=== PATIENT | female | born 1990 | race Caucasian/White ===

== ENCOUNTER 2019-05-28 16:17 | Inpatient (IN) | payer MEDICAID ==
[~2019-05-28] VITALS: Ht 162.6 cm; Wt 98.0 kg
[2019-05-28 16:33] VITALS: BP 99/59
--- NOTE | 2019-05-28 17:15 | NUR ---
PT TAKEN TO BED 7.
--- NOTE | 2019-05-28 17:24 | NUR ---
EPIGASTRIC PAIN X 1100 TODAY. DENIES N/V/D; SKIN IS PINK/WARM/DRY; AAOX4 WITH EVEN AND STEADY GAIT; LUNGS CLEAR BL; HR EVEN AND REGULAR; PT DENIES ANY FEVER, CP, SOB, OR COUGH AT THIS TIME; PATIENT STATES PAIN OF 8/10 AT THIS TIME; VSS; PATIENT POSITIONED FOR COMFORT; HOB ELEVATED; BEDRAILS UP X2; BED DOWN. ER MD MADE AWARE OF PT STATUS. FAMILY AT BEDSIDE.
[2019-05-28 17:40] LABS: BASOPHILS % (AUTO) 0.2 % (0.0-2.0); EOSINOPHILS % (AUTO) 0.1 % (0.0-4.0); HEMATOCRIT 41.2 % (36-48); HEMOGLOBIN 13.3 g/dL (12.0-16.0); LYMPHOCYTES # (AUTO) 1.1 K/uL (2.5-16.5); LYMPHOCYTES % (AUTO) 8.3 % (20.5-51.1); MEAN CORPUSCULAR HEMOGLOBIN 29 pg (27-31); MEAN CORPUSCULAR HGB CONC 32 g/dL (33-37); MEAN CORPUSCULAR VOLUME 88.3 fL (80-94); MONOCYTES # (AUTO) 0.5 K/uL (0.8-1.0); MONOCYTES % (AUTO) 4.1 % (1.7-9.3); NEUTROPHILS # (AUTO) 11.1 K/uL (1.8-7.7); NEUTROPHILS % (AUTO) 87.3 % (42.2-75.2); PLATELET COUNT (AUTO) 308 K/uL (140-450); RED BLOOD CELL COUNT(AUTO) 4.66 MIL/uL (4.20-5.40); RED CELL DISTRIBUTION WIDTH 13.2 % (11.6-13.7); WHITE BLOOD COUNT (AUTO) 12.8 K/uL (4.8-10.8)
[2019-05-28] MEDS ORDERED: ALUMINUM HYD/MAG/SIMETHICONE 30 ML UDC PO ONE (17:40)
[2019-05-28] MEDS ORDERED: LIDOCAINE VISCOUS 2% 20 ML UDC PO ONE (17:40)
--- NOTE | 2019-05-28 17:53 | NUR ---
PT'S FAMILY HAS CONCER FOR BREAST FEEDING, NOTIFIED MD WALT PEREZGE MEDICATION.
[2019-05-28 18:10] LABS: APPEARANCE,URINE SLIGHTLY CLOUDY (CLEAR); COLOR,URINE AMBER (YELLOW)
[2019-05-28 18:11] LABS: BILIRUBIN,URINE 1+ (NEGATIVE); BLOOD, URINE NEGATIVE (NEGATIVE); UGLUCOSE NEGATIVE (NEGATIVE)
[2019-05-28 18:12] LABS: ANION GAP 13.5 (8-16); CARBON DIOXIDE 27.5 mmol/L (21-32); CREATININE 0.8 mg/dL (0.6-1.3)
[2019-05-28 18:12] LABS: LEUKOCYTE ESTERASE ,URINE TRACE (NEGATIVE); NITRITE, URINE NEGATIVE (NEGATIVE)
--- NOTE | 2019-05-28 18:12 | NUR ---
Ultrasound at bedside.
[2019-05-28 18:36] LABS: RBC,URINE NONE SEEN /HPF (0-5)
[2019-05-28 18:52] LABS: TOTAL BILIRUBIN 1.1 mg/dL (0.0-1.0)
--- NOTE | 2019-05-28 19:14 | NUR ---
ENDORSED TO PM SHIFT RN.
[2019-05-28] MEDS ORDERED: ACETAMINOPHEN 325 MG TAB PO PRN (19:30)
[2019-05-28] MEDS ORDERED: PIPERACILLIN/TAZOBACTAM 3.375 GM in DEXTROSE 5% 50 ML IV ONE (19:35)
[2019-05-28] MEDS: NACL 0.9% 1,000 ML IV SCH (19:51)
[2019-05-28 20:10] VITALS: BP 116/67
--- NOTE | 2019-05-28 20:10 | NUR ---
Patient will be admitted to care of [facility]. Admited to [facility]. Will go to room 112 A. Belongings list completed. Report to ISA BENJAMIN.
--- NOTE | 2019-05-28 20:10 | NUR ---
RECEIVED BEDSIDE REPORT FROM ED RN EROS, FOR PT'S CONTINUITY OF CARE. PT IS AAOX4, AMBULATORY TO RESTROOM, MOTHER IS AT BEDSIDE, IS ON ROOM AIR, HAS RIGHT AC 20G, C/O PAIN 6/10. EXPLAINED TO PT AND MOTHER THE WELL SERVICING RIG OPERATOR ROUTINE, THEY VERBALIZED UNDERSTANDING. BED IS ON LOW POSITION, SIDE RAILS ARE UP, AND CALL LIGHT IS WITHIN REACH. WILL MONITOR PT THROUGHOUT SHIFT.
--- NOTE | 2019-05-28 20:10 | NUR ---
Pamela george in EDM - 05/28/19 at 2020 by YOLANDA A Patient will be admitted to care of [facility]. Admited to [facility]. Will go to room 112 A. [facility] list completed. Report to ISA BENJAMIN.
[2019-05-28] MEDS: HYDROcodone/APAP 7.5/325 MG 1 TAB PO PRN (21:07)
--- NOTE | 2019-05-28 21:07 | NUR ---
ADMISSION VS CHECKED AND CHARTED. ADMINISTERED PO PRN PAIN MEDICATION ORDERED. PT TOLERATED IT WELL. WILL CONTINUE TO MONITOR PT.
--- NOTE | 2019-05-28 21:50 | NUR ---
PT TAKEN TO CT DEPT FOR CT OF ABDOMEN.
[2019-05-28 21:54] LABS: FREE T4 (FREE THYROXINE) 0.92 ng/dL (0.76-1.46); MAGNESIUM 2.9 mg/dL (1.8-2.4); PHOSPHORUS 3.7 mg/dL (2.5-4.9); THYROID STIMULATING HORMONE 0.95 uIU/mL (0.34-3.74)
[2019-05-28 22:02] LABS: PROTHROMBIN TIME 9.4 secs (10.8-13.4)
[2019-05-28 22:12] LABS: BARBITURATE, URINE NEGATIVE ng/ml (NEG <=200); BENZODIAZEPINE, URINE NEGATIVE ng/mL (NEG <=200); CANNABINOID, URINE NEGATIVE ng/mL (NEG <=50); COCAINE, URINE NEGATIVE ng/mL (NEG <=300); OPIATE, URINE NEGATIVE ng/mL (NEG <=2000); PHENCYCLIDINE SCREEN,URINE NEGATIVE ng/mL (NEG <=25)
[2019-05-28] MEDS ORDERED: PIPERACILLIN/TAZOBACTAM 3.375 GM VIAL IV ONE (22:29)
[2019-05-28] MEDS: PIPERACILLIN/TAZOBACTAM 3.375 GM in DEXTROSE 5% 50 ML IV SCH (22:30)
[2019-05-28] MEDS: MORPHINE SULFATE 2 MG/ML SYR IVP PRN (22:47)
--- NOTE | 2019-05-28 22:47 | NUR ---
ADMINISTERED SCHEDULED IV ABX ORDERED. PT C/O UNRELIEVED PAIN, ADMINISTERED PRN IV PUSH PAIN MEDICATION ORDERED. PT TOLERATED IT WELL. WILL CONTINUE TO MONITOR PT.
[2019-05-29] VITALS: BP 112/58
--- NOTE | 2019-05-29 | NUR ---
VS CHECKED AND CHARTED. PT DENIES ANY PAIN AT THIS TIME. PT POST (5 WEEKS AGO), IS BREAST FEEDING, PUMPING AT BEDSIDE.
--- NOTE | 2019-05-29 02:30 | NUR ---
MADE ROUNDS. PT LYING DOWN ASLEEP WITH NO SIGNS OF DISTRESS. WILL CONTINUE TO MONITOR PT.
--- NOTE | 2019-05-29 04:00 | NUR ---
PT CALLED AND FOUND PT CRYING, STATES SHE DOES NOT WANT TO BE IN THE HOSPITAL FOR TOO LONG, "WANTS TO BE WITH HER BABY". REITERATED TO PT WHAT DR. MIX EXPLAINED TO HER EARLIER. TOLD PT WILL INFORM MD. PT VERBALIZED UNDERSTANDING. INFORMED MD ANA WILL DISCUSS IN AM.
[2019-05-29] MEDS ORDERED: PIPERACILLIN/TAZOBACTAM 3.375 GM VIAL IV ONE ×2 (04:30→17:44)
--- NOTE | 2019-05-29 04:45 | NUR ---
ADMINISTERED IV ABX ORDERED. PT AWAKE, DENIES ANY PAIN AT THIS TIME, INFORMED PT THAT MD AWARE OF HER CONCERNS. WILL CONTINUE TO MONITOR PT.
[2019-05-29] MEDS: PIPERACILLIN/TAZOBACTAM 3.375 GM in DEXTROSE 5% 50 ML IV SCH ×3 (04:47→21:57)
--- NOTE | 2019-05-29 06:30 | NUR ---
PT AWAKE, PUMPING FOR BREASTMILK, REQUESTED BREAST MILK TO BE STORED IN THE FREEZER. PT DENIES ANY PAIN AT THIS TIME. WILL ENDORSE TO AM SHIFT RN FOR PT'S CONTINUITY OF CARE.
--- NOTE | 2019-05-29 07:15 | NUR ---
RECEIVED REPORT FROM BALLISTIC TECHNICIAN NURSE. PATIENT LYING DOWN IN BED SLEEPING, AROUSABLE BY VOICE. NO DISTRESS NOTED. DENIES ANY PAIN. AAOX4, CALM, COOPERATIVE, SKIN COLOR APPROPRIATE TO ETHNICITY, WARM TO TOUCH. SKIN INTACT. IV SITE INTACT, PATENT, AND INFUSING IVF PER MD ORDERS. RESPIRATIONS EVEN, UNLABORED, ON ROOM AIR. REVIEWED PLAN OF CARE WITH PATIENT. PATIENT VERBALIZED UNDERSTANDING. SAFETY MEASURES IN PLACE, CALL LIGHT WITHIN REACH. WILL CONTINUE TO MONITOR.
[2019-05-29 07:24] LABS: BASOPHILS % (AUTO) 0.4 % (0.0-2.0); EOSINOPHILS % (AUTO) 0.5 % (0.0-4.0); HEMATOCRIT 38.3 % (36-48); HEMOGLOBIN 12.2 g/dL (12.0-16.0); LYMPHOCYTES # (AUTO) 1.6 K/uL (2.5-16.5); LYMPHOCYTES % (AUTO) 24.6 % (20.5-51.1); MEAN CORPUSCULAR HEMOGLOBIN 28 pg (27-31); MEAN CORPUSCULAR HGB CONC 32 g/dL (33-37); MEAN CORPUSCULAR VOLUME 88.4 fL (80-94); MONOCYTES # (AUTO) 0.4 K/uL (0.8-1.0); MONOCYTES % (AUTO) 6.6 % (1.7-9.3); NEUTROPHILS # (AUTO) 4.5 K/uL (1.8-7.7); NEUTROPHILS % (AUTO) 67.9 % (42.2-75.2); PLATELET COUNT (AUTO) 268 K/uL (140-450); RED BLOOD CELL COUNT(AUTO) 4.33 MIL/uL (4.20-5.40); RED CELL DISTRIBUTION WIDTH 13.3 % (11.6-13.7); WHITE BLOOD COUNT (AUTO) 6.6 K/uL (4.8-10.8)
[2019-05-29 08:00] VITALS: BP 108/59
[2019-05-29 08:23] LABS: ANION GAP 14.6 (8-16); CARBON DIOXIDE 25.6 mmol/L (21-32); POTASSIUM 3.2 mmol/L (3.5-5.1)
[2019-05-29 08:24] LABS: CREATININE 0.8 mg/dL (0.6-1.3)
[2019-05-29 08:48] LABS: CHOL/HDL RATIO 3.6 (1-4.5)
[2019-05-29] MEDS: LACTOBACILLUS RHAMNOSUS GG 1 EACH CAP PO SCH (09:30)
--- NOTE | 2019-05-29 09:32 | NUR ---
PATIENT LYING DOWN IN BED COMFORTABLY. MOTHER AT BEDSIDE. NO DISTRESS NOTED. DENIES ANY PAIN. SCHEDULED MEDICATIONS DUE GIVEN. WILL CONTINUE TO MONITOR.
--- NOTE | 2019-05-29 11:00 | NUR ---
PATIENT SITTING DOWN IN BED BREASTPUMPING. NO DISTRESS NOTED. DENIES ANY PAIN. WILL CONTINUE TO MONITOR.
[2019-05-29] MEDS ORDERED: POTASSIUM CHLORIDE 10 MEQ TABER PO SCH (12:00)
--- NOTE | 2019-05-29 12:30 | NUR ---
PATIENT SITTING DOWN IN BED TALKING WITH MOTHER AT BEDSIDE. CONDITION UNCHANGED. WILL CONTINUE TO MONITOR.
[2019-05-29] MEDS: NACL 0.9% 1,000 ML IV SCH (12:56)
[2019-05-29 14:49] LABS: ALBUMIN 3.6 g/dL (3.4-5.0); BILIRUBIN,DIRECT 1.1 mg/dL (0.0-0.3); TOTAL BILIRUBIN 2.7 mg/dL (0.0-1.0)
--- NOTE | 2019-05-29 14:54 | NUR ---
DR. MIX AT BEDSIDE REVIEWING PLAN OF CARE WITH PATIENT. FAMILY AT BEDSIDE ALONG WITH PATIENT. WILL CONTINUE TO MONITOR.
--- NOTE | 2019-05-29 15:00 | NUR ---
DR MIX TALKED WITH PATIENT AND FAMILY AT BEDSIDE REGARDING SURGERY AND OPTIONS FOR PATIENT. DR. MIX RECOMMENDS MRI INSTEAD OF SURGERY AT THIS TIME DUE TO RISKS AND LACK OF PROPER EQUIPMENT TO PERFORM THE SURGERY AT [facility]. PATIENT/FAMILY VERBALIZED UNDERSTANDING, BUT UNSURE AT THIS TIME PATIENT FEELS LIKE THEY ARE WASTING THEIR TIME WAITING HERE. PATIENT WISHES TO BE WITH HER BABY AND GO HOME. WILL CONTINUE TO MONITOR.
[2019-05-29 16:00] VITALS: BP 110/60
[2019-05-29] MEDS ORDERED: BUPIVACAINE-MPF/EPI 0.5% 30 ML VIAL INJ ONE (16:26)
[2019-05-29] MEDS ORDERED: MIDAZOLAM 2 MG/2 ML VIAL ONE (16:39)
[2019-05-29] MEDS ORDERED: fentaNYL 0.05 MG/ML VIAL ONE (16:39)
--- NOTE | 2019-05-29 17:08 | NUR ---
DR. RICHARD AT BEDSIDE REVIEWING PLAN OF CARE WITH PATIENT/FAMILY AT BEDSIDE. CONSENT OBTAINED FOR LAP CHOLECYSTECTOMY. DR. RICHARD ANSWERED ALL OF PATIENT/FAMILY QUESTIONS REGARDING SURGERY. WILL CONTINUE TO MONITOR.
[2019-05-29] MEDS ORDERED: ROCURONIUM 50 MG/5 ML VIAL IV ONE (17:36)
[2019-05-29] MEDS ORDERED: SUCCINYLCHOLINE CHLORIDE 200 MG/10 ML VIAL IV ONE (17:36)
[2019-05-29] MEDS ORDERED: DEXAMETHASONE 4 MG/ML VIAL IVP ONE (17:36)
[2019-05-29] MEDS ORDERED: DESFLURANE 240 ML BTL INH ONE (17:36)
[2019-05-29] MEDS ORDERED: LIDOCAINE 2% 100 MG/5 ML SYR IVP ONE (17:36)
[2019-05-29] MEDS ORDERED: PROPOFOL 200 MG/20 ML VIAL IV ONE (17:36)
[2019-05-29] MEDS ORDERED: KETOROLAC 30 MG/ML VIAL IVP ONE (17:36)
[2019-05-29] MEDS ORDERED: ePHEDrine 50 MG/ML VIAL IV ONE (17:36)
--- NOTE | 2019-05-29 18:00 | NUR ---
OR NURSES ON UNIT TO TAKE PATIENT TO SURGERY. WILL CONTINUE TO MONITOR WHEN PATIENT RETURNS.
[2019-05-29] MEDS ORDERED: ONDANSETRON 4 MG/2 ML VIAL IVP PRN (18:10)
[2019-05-29] MEDS ORDERED: HYDROmorphone 1 MG/ML AMP IVP PRN (18:10)
[2019-05-29] MEDS ORDERED: THROMBIN KIT 20 MU VIAL TP ONE (19:00)
--- NOTE | 2019-05-29 19:15 | NUR ---
RECEIVED REPORT FROM AM SHIFT RN VIKY FOR PT'S CONTINUITY OF CARE. PT IS IN SX FOR HEIDI MARQUEZ. WILL MONITOR PT THROUGHOUT SHIFT UPON RETURN TO THE UNIT.
--- NOTE | 2019-05-29 19:15 | NUR ---
GAVE REPORT TO ORTHOTIC PRACTITIONER NURSE FOR CONTINUITY OF CARE. PATIENT IN STABLE CONDITION.
[2019-05-29] MEDS ORDERED: HYDROmorphone PFS 2 MG/ML SYR ONE (19:50)
--- NOTE | 2019-05-29 20:30 | NUR ---
PATIENT BACK FROM SX. S/P HEIDI MARQUEZ, REPORT GIVEN AT BEDSIDE BY RN PLASTICS. PT AAOX4, ON ROOM AIR, HAS RIGHT AC 20G, REPORTS FEELING OF SORENESS AT THE SITE. 4 INCISIONS, WITH DERMABOND AND 2 BAND AIDS ON 2 INCISIONS. POST OP VS IMPLEMENTED. SAFETY MEASURES IN PLACE. CALL LIGHT IS WITHIN REACH. FAMILY MEMBERS AT BEDSIDE. WILL CONTINUE TO MONITOR PT.
--- NOTE | 2019-05-29 20:45 | NUR ---
PT C/O NAUSEA AND VOMITING, SORENESS AT THE SITE. PT TEACHING GIVEN RE: POST OP SX. PT AND FAM MEMBERS VERBALIZED UNDERSTANDING.
[2019-05-29] MEDS: ONDANSETRON 4 MG/2 ML VIAL IM/IVP PRN (21:56)
[2019-05-29] MEDS: MORPHINE SULFATE 2 MG/ML SYR IVP PRN (21:57)
--- NOTE | 2019-05-29 21:57 | NUR ---
PT C/O PAIN AND NAUSEA. ADMINISTERED PRN IV PUSH ANTI NAUSEA AND PAIN MEDICATIONS ORDERED. ADMINISTERED SCHEDULED IV ABX ORDERED, MD AWARE. PT TOLERATED THEM WELL. WILL CONTINUE TO MONITOR PT.
[2019-05-30] VITALS: BP 115/54
--- NOTE | 2019-05-30 00:20 | NUR ---
VS CHECKED AND CHARTED. PT DENIES PAIN, JUST FEELS SORE AT THE SX SITE. ASSISTED PT TO BREAST PUMP, PT REQUESTED FOR CHICKEN BROTH AND WARM WATER. PT TOLERATED ACTIVITY AND FLUIDS WELL. WILL CONTINUE TO MONITOR PT.
--- NOTE | 2019-05-30 02:40 | NUR ---
ASSISTED PT WITH BREAST PUMP, PT DENIES PAIN AT THIS TIME. ENCOURAGED PT TO INCREASE FLUID INTAKE, TO HELP WITH BREAST MILK PRODUCTION. PT VERBALIZED UNDERSTANDING. WILL CONTINUE TO MONITOR PT.
[2019-05-30] MEDS: PIPERACILLIN/TAZOBACTAM 3.375 GM in DEXTROSE 5% 50 ML IV SCH (04:27)
--- NOTE | 2019-05-30 04:30 | NUR ---
ADMINISTERED SCHEDULED IV ABX ORDERED. PT STATES SX SITE FEELS SORE, AND NO PAIN AT THIS TIME. WILL CONTINUE TO MONITOR PT.
[2019-05-30] MEDS: NACL 0.9% 1,000 ML IV SCH ×2 (04:50→21:30)
--- NOTE | 2019-05-30 05:20 | NUR ---
ASSISTED PT TO BREAST PUMP. REQUESTED PAIN MEDICATION AFTER USING BREAST PUMP.
[2019-05-30] MEDS: MORPHINE SULFATE 2 MG/ML SYR IVP PRN ×3 (06:00→21:52)
--- NOTE | 2019-05-30 06:00 | NUR ---
PT C/O ABD PAIN 03/20. ADMINISTERED PRN IV PUSH PAIN MEDICATION ORDERED. PT TOLERATED IT WELL. PT IN COMFORTABLE POSITION, AND IN STABLE CONDITION. WILL ENDORSE TO AM SHIFT RN FOR PT'S CONTINUITY OF CARE.
[2019-05-30 06:40] LABS: BASOPHILS % (AUTO) 0.2 % (0.0-2.0); EOSINOPHILS % (AUTO) 0.1 % (0.0-4.0); HEMATOCRIT 35.1 % (36-48); HEMOGLOBIN 11.5 g/dL (12.0-16.0); LYMPHOCYTES # (AUTO) 1.2 K/uL (2.5-16.5); LYMPHOCYTES % (AUTO) 17.4 % (20.5-51.1); MEAN CORPUSCULAR HEMOGLOBIN 29 pg (27-31); MEAN CORPUSCULAR HGB CONC 33 g/dL (33-37); MEAN CORPUSCULAR VOLUME 87.8 fL (80-94); MONOCYTES # (AUTO) 0.5 K/uL (0.8-1.0); MONOCYTES % (AUTO) 7.2 % (1.7-9.3); NEUTROPHILS # (AUTO) 5.3 K/uL (1.8-7.7); NEUTROPHILS % (AUTO) 75.1 % (42.2-75.2); PLATELET COUNT (AUTO) 232 K/uL (140-450); RED CELL DISTRIBUTION WIDTH 13.5 % (11.6-13.7); WHITE BLOOD COUNT (AUTO) 7.1 K/uL (4.8-10.8)
[2019-05-30 07:01] LABS: MAGNESIUM 1.7 mg/dL (1.8-2.4); PHOSPHORUS 4.4 mg/dL (2.5-4.9)
--- NOTE | 2019-05-30 07:05 | NUR ---
RECEIVED REPORT FROM CONVEYOR SYSTEM OPERATOR NURSE. PT IS AROUSABLE TO NAME, ORIENTED X4, NO C/O PAIN. IV ON RT AC 20 GA RUNNING IVF PER ORDER. RESPIRATIONS EVEN AND UNLABORED ON RA. ABD SOFT, ACTIVE BS. NOTED SURGICAL INCISIONS TO ABD, DRESSING CLEAN, DRY AND INTACT. SAFETY MEASURES IN PLACE, CALL LIGHT WITHIN REACH. REVIEWED POC WITH PT, PT VERBALIZES UNDERSTANDING.
[2019-05-30 07:11] LABS: ALBUMIN 3.3 g/dL (3.4-5.0); ANION GAP 15.1 (8-16); CARBON DIOXIDE 25.8 mmol/L (21-32); CREATININE 0.7 mg/dL (0.6-1.3); POTASSIUM 3.9 mmol/L (3.5-5.1); TOTAL BILIRUBIN 2.3 mg/dL (0.0-1.0)
[2019-05-30 08:00] VITALS: BP 118/64
[2019-05-30] MEDS: LACTOBACILLUS RHAMNOSUS GG 1 EACH CAP PO SCH (08:38)
--- NOTE | 2019-05-30 08:38 | NUR ---
ADMINISTERED LACTOBACILLUS PER ORDER, PT AWARE OF INDICATIONS AND POTENTIAL SIDE EFFECTS. ASSISTED PT TO AMBULATE TO THE RESTROOM, WALKING SLOWLY WITH STEADY GAIT.
--- NOTE | 2019-05-30 08:45 | NUR ---
PT GIVEN BATHING SUPPLIES PER REQUEST. ASSISTED PT TO THE BATHROOM TO SHOWER. WILL CONTINUE TO MONITOR.
--- NOTE | 2019-05-30 09:09 | NUR ---
ADMINISTERED MORPHINE PER ORDER FOR LEVEL 7/10 PAIN TO ABDOMEN. WILL REASSESS WITHIN 1 HOUR.
--- NOTE | 2019-05-30 11:30 | NUR ---
NOTIFIED PT THAT SHE CANNOT HAVE ANYTHING TO EAT AFTER MIDNIGHT D/T PROCEDURE TO BE DONE TOMORROW. PT IS AWARE THAT SHE MAY EAT LUNCH AND DINNER.
[2019-05-30] MEDS ORDERED: HYDROmorphone 1 MG/ML AMP IVP PRN (12:20)
[2019-05-30] MEDS ORDERED: MAGNESIUM OXIDE 400 MG TAB PO SCH (12:30)
[2019-05-30] MEDS: LEVOFLOXACIN 500 MG/D5W PREMIX 100 ML IV SCH (13:39)
--- NOTE | 2019-05-30 13:39 | NUR ---
ADMINISTERED IV LEVAQUIN PER ORDER, PT IS AWARE OF INDICATIONS AND POTENTIAL SIDE EFFECTS. PT HAS NO SIGNS OF DISTRESS AT THIS TIME.
[2019-05-30] MEDS: ONDANSETRON 4 MG/2 ML VIAL IM/IVP PRN (15:53)
--- NOTE | 2019-05-30 15:53 | NUR ---
ADMINISTERED ZOFRAN PER ORDER D/T PT C/O FEELINGS OF NAUSEA, WILL REASSESS WITHIN 1 HOUR.
[2019-05-30 16:00] VITALS: BP 102/61
--- NOTE | 2019-05-30 17:10 | NUR ---
WOUND ASSESSMENT DONE, SKIN CARE PROVIDED. PT REQUESTS TO SEE A NURSE. NOTIFIED CHARGE NURSE.
--- NOTE | 2019-05-30 19:10 | NUR ---
ENDORSED PT TO SEARCH SPECIALIST NURSE. PT HAS NO SIGNS OF DISTRESS AT THIS TIME.
--- NOTE | 2019-05-30 19:11 | NUR ---
RECEIVED REPORT FROM AM SHIFT NURSE. PT Mary Hernandez, ORIENTED X4, WITH COMPLAINTS OF PAIN 10/18, GIVEN PAIN MEDS EARLIER. IV ON LT AC RUNNING IVF PER ORDER.S/P HEIDI ALMA LAST 05/29, FOR ERCP TOMORROW. NPO POST MIDNIGHT, AWARE RESPIRATIONS EVEN AND UNLABORED ON RA. ABD SOFT, ACTIVE BS. NOTED SURGICAL INCISIONS TO ABD, DRESSING CLEAN, DRY AND INTACT. SAFETY MEASURES IN PLACE, CALL LIGHT WITHIN REACH. REVIEWED POC WITH PT, PT VERBALIZED UNDERSTANDING.WILL CONTINUE TO MONITOR. Addendum: 05/30/19 at 1954 by Nathalia Hernandez RN PLS DELETE COMPLAINTS OF PAIN AND GIVEN PAIN MEDS EARLIER ---TO--- NO COMPLAINTS OF PAIN NOW, W/ FAMILY AT BEDSIDE.
[2019-05-30 20:00] VITALS: BP 121/71
--- NOTE | 2019-05-30 21:50 | NUR ---
PT C/O OF 10/10 PAIN ON THE INCISION WILL ADMINSITER PAIN MEDS ACCDG TO SEVERITY OF PAIN . EXPLAINED THE RISKS AND BENFEFITS OF MORPHINE PT VERBALIZED UNDERSTANDING
--- NOTE | 2019-05-30 22:00 | NUR ---
PT AMBULATING, GOING TO THE BATHROOM, ABLE TO TOLERATE WITH STEADY GAIT
--- NOTE | 2019-05-31 00:30 | NUR ---
TOOK A PICTURE ON THE SURGICAL INCISIONS S/P LAP ALMA- 4 INCISIONS.
[2019-05-31] MEDS: MORPHINE SULFATE 2 MG/ML SYR IVP PRN ×2 (01:44→09:04)
--- NOTE | 2019-05-31 01:45 | NUR ---
PLS DELETE PAIN ASSESSMENT 0145 AND CHANGED TO 0144
--- NOTE | 2019-05-31 04:00 | NUR ---
PT CRYING POST SIGNS OF DEPRESSION NOTED, WILL INFORM AM NURSE FOR HULL OUTFIT SUPERVISOR
[2019-05-31 06:57] LABS: BASOPHILS % (AUTO) 0.4 % (0.0-2.0); EOSINOPHILS % (AUTO) 0.6 % (0.0-4.0); HEMOGLOBIN 11.9 g/dL (12.0-16.0); LYMPHOCYTES # (AUTO) 1.6 K/uL (2.5-16.5); LYMPHOCYTES % (AUTO) 28.7 % (20.5-51.1); MEAN CORPUSCULAR HEMOGLOBIN 29 pg (27-31); MEAN CORPUSCULAR HGB CONC 32 g/dL (33-37); MEAN CORPUSCULAR VOLUME 88.8 fL (80-94); MONOCYTES # (AUTO) 0.4 K/uL (0.8-1.0); MONOCYTES % (AUTO) 7.8 % (1.7-9.3); NEUTROPHILS # (AUTO) 3.5 K/uL (1.8-7.7); NEUTROPHILS % (AUTO) 62.5 % (42.2-75.2); PLATELET COUNT (AUTO) 242 K/uL (140-450); RED BLOOD CELL COUNT(AUTO) 4.17 MIL/uL (4.20-5.40); RED CELL DISTRIBUTION WIDTH 13.3 % (11.6-13.7); WHITE BLOOD COUNT (AUTO) 5.5 K/uL (4.8-10.8)
[2019-05-31 07:18] LABS: ANION GAP 14.6 (8-16); CARBON DIOXIDE 26.4 mmol/L (21-32); CREATININE 0.7 mg/dL (0.6-1.3)
--- NOTE | 2019-05-31 07:19 | NUR ---
PT IN STABLE CONDITION, ENDORSED TO NEXT SHIFT, FOR POSSIBLE ERCP TODAY
--- NOTE | 2019-05-31 07:20 | NUR ---
RECEIVED REPORT FROM INTERMEDIATE PROJECT MANAGER NURSE. PT IS AOX4. VSS, NO C/O PAIN. RESPIRATIONS EVEN AND UNLABORED ON RA. IV ON LT AC 20 GA RUNNING IVF PER ORDER. ABD SOFT, ACTIVE BS. ABD INCISIONS INTACT, SKIN WARM TO TOUCH. SAFETY MEASURES IN PLACE, CALL LIGHT WITHIN REACH. REVIEWED POC WITH PT, PT VERBALIZED UNDERSTANDING.
[2019-05-31 07:21] LABS: MAGNESIUM 1.8 mg/dL (1.8-2.4); PHOSPHORUS 3.3 mg/dL (2.5-4.9)
[2019-05-31 07:26] LABS: ALBUMIN 3.3 g/dL (3.4-5.0); BILIRUBIN,DIRECT 2.6 mg/dL (0.0-0.3); TOTAL BILIRUBIN 4.4 mg/dL (0.0-1.0)
--- NOTE | 2019-05-31 07:50 | NUR ---
NOTIFIED CHARGE NURSE REGARDING PT'S REQUEST TO SEE CORE FEEDER. WILL CONTINUE TO FOLLOW-UP.
[2019-05-31 08:00] VITALS: BP 114/75
--- NOTE | 2019-05-31 08:38 | NUR ---
PT REFUSED LACTOBACILLUS AT THIS TIME, PT HAS NOTHING BY MOUTH D/T PROCEDURE TODAY. WILL NOTIFY PHYSICIAN.
[2019-05-31] MEDS: LACTOBACILLUS RHAMNOSUS GG 1 EACH CAP PO SCH (09:00)
--- NOTE | 2019-05-31 10:45 | NUR ---
NOTIFIED PT THAT PROCEDURE WILL BE AROUND 1115, PT VERBALIZES UNDERSTANDING.
--- NOTE | 2019-05-31 11:10 | NUR ---
PT TAKEN TO OR FOR PROCEDURE, PT HAS NO SIGNS OF DISTRESS AT THIS TIME.
[2019-05-31] MEDS ORDERED: MIDAZOLAM 2 MG/2 ML VIAL ONE (11:26)
[2019-05-31] MEDS ORDERED: fentaNYL 0.05 MG/ML VIAL ONE (11:26)
[2019-05-31] MEDS ORDERED: MEPERIDINE 25 MG/ML SYR IVP PRN (12:10)
[2019-05-31] MEDS ORDERED: ONDANSETRON 4 MG/2 ML VIAL IVP PRN (12:10)
[2019-05-31] MEDS ORDERED: HYDROmorphone 1 MG/ML AMP IVP PRN (12:10)
[2019-05-31] MEDS ORDERED: diphenhydrAMINE 50 MG/ML VIAL IVP PRN (12:10)
[2019-05-31 13:15] VITALS: BP 137/79
--- NOTE | 2019-05-31 13:15 | NUR ---
RECEIVED REPORT FROM SOURAV JIMENEZ. PT VSS, HAS NO C/O PAIN AT THIS TIME.
[2019-05-31] MEDS: LACTATED RINGERS 1,000 ML IV SCH ×2 (13:36)
[2019-05-31] MEDS ORDERED: LEVO750T2 PO (13:43)
[2019-05-31] MEDS ORDERED: DEXT100S62 IV (13:45)
--- NOTE | 2019-05-31 13:52 | NUR ---
FAXED ALL THE PAPER WORK AND REQUEST TO [facility] SPOKE WITH LINDA AT [phone] AND FAXED TO [facility] AT [phone] AND SPOKE WITH RIP BLAKE TO FOLLOW
[2019-05-31] MEDS: HYDROcodone/APAP 7.5/325 MG 1 TAB PO PRN (14:21)
--- NOTE | 2019-05-31 14:21 | NUR ---
ADMINISTERED PAIN MEDICATION D/T LEVEL 6/10 PAIN TO ABD, WILL REASSESS WITHIN 1 HOUR.
[2019-05-31] MEDS: LEVOFLOXACIN 500 MG/D5W PREMIX 100 ML IV SCH (14:27)
--- NOTE | 2019-05-31 15:17 | NUR ---
STILL WAITING FOR AUTHORIZATION FROM INSURANCE CM , LINDA STATED STILL NO ASSIGNED CM FOR THIS PT WILL CALL BACK CM TO FOLLOW
[2019-05-31 16:00] VITALS: BP 110/66
--- NOTE | 2019-05-31 16:30 | NUR ---
PT'S VSS, NO C/O PAIN AT THIS TIME. PT IS AWARE OF PLAN TO BE TRANSFERRED TO [facility].
--- NOTE | 2019-05-31 19:20 | NUR ---
ENDORSED PT TO 4TH GRADE TEACHER NURSE. PT HAS NO SIGNS OF DISTRESS AT THIS TIME.
--- NOTE | 2019-05-31 19:20 | NUR ---
RECIEVED PT AAOX4 , NID , IV SITE INTACT AND PATENT , DENIES ANY PAIN , SURGICAL SITE INTACT - NO SIGNS OF ACTIVE BLEEDING NOTED AT THIS TIME . PLAN OF CARE DISCUSSED AND VEBALIZE UNDERSTANDING . ON SAFETY PRECAUTION PROTOCOL - CALL LIGHT WITHIN REACH . WILL CONT. TO MONITOR.
[2019-05-31 20:00] VITALS: BP 110/69
[2019-05-31] MEDS: INDOMETHACIN 25 MG CAP PO SCH (21:46)
--- NOTE | 2019-05-31 22:00 | NUR ---
MADE ROUNDS , NO COMPLAIN MADE AT THIS TIME . CALL LIGHT WITHIN REACH
--- NOTE | 2019-06-01 | NUR ---
MADE ROUNDS . NO SIGNS OF DISTRESS NOTED AT THIS TIME. CALL LIGHT WITH IN REACH.
[2019-06-01] MEDS: LACTATED RINGERS 1,000 ML IV SCH ×4 (01:00→23:44)
--- NOTE | 2019-06-01 04:00 | NUR ---
MADE ROUNDS , NO COMPLAIN MADE AT THIS TIME.
[2019-06-01 07:13] LABS: BASOPHILS % (AUTO) 0.2 % (0.0-2.0); EOSINOPHILS # (AUTO) 0.2 K/uL (0-0.4); EOSINOPHILS % (AUTO) 3.5 % (0.0-4.0); HEMATOCRIT 33.5 % (36-48); HEMOGLOBIN 10.9 g/dL (12.0-16.0); LYMPHOCYTES # (AUTO) 1.8 K/uL (2.5-16.5); MEAN CORPUSCULAR HEMOGLOBIN 29 pg (27-31); MEAN CORPUSCULAR HGB CONC 33 g/dL (33-37); MEAN CORPUSCULAR VOLUME 87.8 fL (80-94); MONOCYTES # (AUTO) 0.5 K/uL (0.8-1.0); MONOCYTES % (AUTO) 8.7 % (1.7-9.3); NEUTROPHILS # (AUTO) 3.2 K/uL (1.8-7.7); NEUTROPHILS % (AUTO) 56.6 % (42.2-75.2); PLATELET COUNT (AUTO) 220 K/uL (140-450); RED BLOOD CELL COUNT(AUTO) 3.81 MIL/uL (4.20-5.40); RED CELL DISTRIBUTION WIDTH 13.1 % (11.6-13.7); WHITE BLOOD COUNT (AUTO) 5.7 K/uL (4.8-10.8)
--- NOTE | 2019-06-01 07:17 | NUR ---
ENDORSED TO AM SHIFT WITH STABLE CONDITION.
--- NOTE | 2019-06-01 07:18 | NUR ---
RECEIVED REPORT FROM ACCREDITATION COORDINATOR NURSE. PATIENT SITTING IN BED COMFORTABLY. NO DISTRESS NOTED. DENIES ANY PAIN. AAOX4, CALM, COOPERATIVE, SKIN COLOR APPROPRIATE TO ETHNICITY, WARM TO TOUCH. S/P LAP APPENDECTOMY, WOUND ON ABD, DRY AND INTACT. IV SITE INTACT, PATENT, AND INFUSING IVF PER MD ORDERS. RESPIRATIONS EVEN, UNLABORED, ON ROOM AIR. REVIEWED PLAN OF CARE WITH PATIENT. PATIENT VERBALIZED UNDERSTANDING. SAFETY MEASURES IN PLACE, CALL LIGHT WITHIN REACH. WILL CONTINUE TO MONITOR.
[2019-06-01 07:39] LABS: ANION GAP 15.4 (8-16); CARBON DIOXIDE 24.9 mmol/L (21-32); CREATININE 0.6 mg/dL (0.6-1.3); MAGNESIUM 1.6 mg/dL (1.8-2.4); PHOSPHORUS 3.3 mg/dL (2.5-4.9); POTASSIUM 3.3 mmol/L (3.5-5.1); TOTAL BILIRUBIN 2.8 mg/dL (0.0-1.0)
[2019-06-01 08:00] VITALS: BP 120/66
--- NOTE | 2019-06-01 08:30 | NUR ---
CALLED [facility] [phone] SPOKE WITH KARIN , STATED SHE HASN'T RECEIVED ANY OF THE CLINICAL NOTES AND NO CM ASSIGNED FOR THIS PT. EXPLAIN TO KARIN THAT WE FAXED ALL THE CLINICAL NOTED TO [phone] FOR THE LAST 4 DAYS AND WE HAVE THE CONFIRMATION AND PT NEEDS TO BE TRANSFERRED TO HIGHER LEVEL OF CARE FOR MRCP POSSIBLE [facility] SINCE WE HAVE ACCEPTING DR. FRAZIER NOTIFIED ME THERE IS NOTHING SHE CAN DO , SHE HAS TO WAIT UNTIL UPLOADING IT AND ASSIGN CM , TO CHECK BACK IN THE AFTERNOON.
[2019-06-01] MEDS ORDERED: POTASSIUM CHLORIDE 10 MEQ TABER PO SCH ×2 (09:00→15:15)
[2019-06-01] MEDS: LACTOBACILLUS RHAMNOSUS GG 1 EACH CAP PO SCH (09:15)
[2019-06-01] MEDS: PANTOPRAZOLE 40 MG INJ VIAL IVP SCH (09:16)
[2019-06-01] MEDS: INDOMETHACIN 25 MG CAP PO SCH ×2 (09:17→21:31)
--- NOTE | 2019-06-01 09:18 | NUR ---
PATIENT SITTING IN BED, MOTHER AT BEDSIDE. NO DISTRESS NOTED. DENIES ANY PAIN. SCHEDULED MEDICATIONS DUE GIVEN. WILL CONTINUE TO MONITOR.
--- NOTE | 2019-06-01 11:40 | NUR ---
PATIENT SITTING IN BED TALKING WITH MOTHER AT BEDSIDE. NO DISTRESS NOTED. DENIES ANY PAIN. WILL CONTINUE TO MONITOR.
--- NOTE | 2019-06-01 12:58 | NUR ---
PATIENT SITTING IN BEDSIDE . CONDITION UNCHANGED. AWAITING FOR INSURANCE APPROVAL. WILL CONTINUE TO MONITOR.
--- NOTE | 2019-06-01 12:58 | NUR ---
RECEIVED A CALL FROM ERNESTINE ERWIN REQUESTING PT TO BE TRANSFERRED TO CONTRACTED FACILITY HOW [facility]ER EXPLAIN THAT [facility] HAS ACCEPTING DR Andrea SINHA STATED WILL WORK ON IT AND WILL CALL BACK.
[2019-06-01] MEDS: LEVOFLOXACIN 500 MG/D5W PREMIX 100 ML IV SCH (13:44)
--- NOTE | 2019-06-01 13:48 | NUR ---
PATIENT . SCHEDULED MEDICATIONS DUE GIVEN. WILL CONTINUE TO MONITOR.
--- NOTE | 2019-06-01 14:50 | NUR ---
RECEIVED A CALL FROM ERNESTINE JAMES STATED THEIR DR [place] APPROVED THE TRANSFER BUT NOT [facility] BECAUSE THEY ARE NOT CONTRACTED FACILITY TO TRY [facility] . CALLED [facility] [phone] NO ONE TO TAKE A MESSAGE AT THIS TIME. WAS TOLD TO CALL BACK
--- NOTE | 2019-06-01 15:23 | NUR ---
CALLED [facility] JESSICA AGAIN SPOKE WITH [facility] , PROVIDED ALL THE INFORMATION AND DR DODGE'S NUMBER FAXED TO [phone] CM TO FOLLOW UP
[2019-06-01] MEDS ORDERED: MAG SULF 2000 MG/WATER PREMIX 50 ML IV SCH (15:30)
--- NOTE | 2019-06-01 15:35 | NUR ---
PATIENT SITTING IN BED. MANAGEMENT MANAGER AT BEDSIDE TALKING WITH PATIENT/MOTHER. SCHEDULED MEDICATIONS DUE GIVEN. WILL CONTINUE TO MONITOR.
[2019-06-01 16:00] VITALS: BP 115/65
--- NOTE | 2019-06-01 16:16 | NUR ---
AUTHORIZATION FOR TRANSPORT IS [phone] TRANSPORT WILL CALL
--- NOTE | 2019-06-01 16:29 | NUR ---
CONTACTED [facility] AT [phone], ABLE TO SPEAK TO FRAN. TRANSPORT SET UP FOR WILL CALL.
--- NOTE | 2019-06-01 16:41 | NUR ---
SPOKE WITH DR Pretty DODGE NOTIFIED HIM THAT PT HAS TO GO TO [facility] AND THE [facility] FOR CONTRACTED FACILITY .DR DODGE CALLED THE GI AT THE [facility] DR GAXIOLA AND HE WILL BE THE ACCEPTING DR. AND WAITING FOR THE BED AND PROVIDED THE FLOOR NUMBER.
--- NOTE | 2019-06-01 19:32 | NUR ---
GAVE REPORT TO CONTROL SYSTEMS SPECIALIST NURSE FOR CONTINUITY OF CARE. PATIENT IN STABLE CONDITION.
--- NOTE | 2019-06-01 19:33 | NUR ---
RECD. RESTING IN BED, AWAKE, A/OX4. RESPIRATION EVEN AND UNLABORED. IV OF LR AT 120 ML/HR INFUSING, RIGHT AC G20. WATCHING TV. AMBULATING INDEPENDENTLY TO BR. PLAN OF CARE FOR THE SHIFT DISCUSSED. VERBALIZED UNDERSTANDING. DENIES PAIN 0/10.
--- NOTE | 2019-06-01 19:41 | NUR ---
Patient's Plan of Care was discussed and reviewed with CLOSED CIRCUIT SCREEN WATCHER: THA DAVIS
[2019-06-01] MEDS: HYDROcodone/APAP 7.5/325 MG 1 TAB PO PRN (21:30)
--- NOTE | 2019-06-01 21:30 | NUR ---
DUE PO MEDICATION GIVEN.
--- NOTE | 2019-06-01 22:30 | NUR ---
PUMPS HER BREAST, OBTAINED MODERATE AMOUNT OF MILK NOT FOR HER BABY BUT JUST TO MAINTAIN THE FLOW OF MILD.
[2019-06-02] VITALS: BP 99/57
--- NOTE | 2019-06-02 00:30 | NUR ---
SLEEPING COMFORTABLY IN BED.
--- NOTE | 2019-06-02 03:00 | NUR ---
USED AGAIN THE BREAST PUMP.
--- NOTE | 2019-06-02 04:52 | NUR ---
AWAKE, USING AGAIN THE BREAST PUMP. DOES NOT COMPLAINED OF PAIN 0/10.
[2019-06-02] MEDS: LACTATED RINGERS 1,000 ML IV SCH ×2 (05:50→15:11)
--- NOTE | 2019-06-02 07:15 | NUR ---
CONDITION REMAIN STABLE. ENDORSED TO AM NURSE FOR CONTINUITY OF CAFE.
[2019-06-02 07:24] LABS: BASOPHILS % (AUTO) 0.3 % (0.0-2.0); EOSINOPHILS # (AUTO) 0.3 K/uL (0-0.4); EOSINOPHILS % (AUTO) 5.1 % (0.0-4.0); HEMATOCRIT 34.3 % (36-48); HEMOGLOBIN 11.1 g/dL (12.0-16.0); LYMPHOCYTES # (AUTO) 2.3 K/uL (2.5-16.5); LYMPHOCYTES % (AUTO) 42.1 % (20.5-51.1); MEAN CORPUSCULAR HEMOGLOBIN 29 pg (27-31); MEAN CORPUSCULAR HGB CONC 33 g/dL (33-37); MEAN CORPUSCULAR VOLUME 87.8 fL (80-94); MONOCYTES # (AUTO) 0.5 K/uL (0.8-1.0); NEUTROPHILS # (AUTO) 2.4 K/uL (1.8-7.7); NEUTROPHILS % (AUTO) 43.5 % (42.2-75.2); PLATELET COUNT (AUTO) 247 K/uL (140-450); RED CELL DISTRIBUTION WIDTH 13.2 % (11.6-13.7); WHITE BLOOD COUNT (AUTO) 5.5 K/uL (4.8-10.8)
--- NOTE | 2019-06-02 07:25 | NUR ---
RECEIVED BEDSIDE REPORT FROM NIGHT NURSE. PT ASLEEP, AROUSABLE TO SPEECH. AAOX4. PT DENIES PAIN. RESPIRATIONS EVEN AND UNLABORED ON ROOM AIR. IV IN PLACE L AC 20G INFUSING PER ORDER, PATENT AND ASYMPTOMATIC. SURGICAL WOUND OPEN TO AIR. SKIN WARM AND DRY. SAFETY MEASURES IN PLACE. BED IN LOW POSITION. CALL LIGHT WITHIN REACH. WILL CONTINUE TO MONITOR.
[2019-06-02 07:37] LABS: ALBUMIN 3.1 g/dL (3.4-5.0); ANION GAP 15.5 (8-16); CARBON DIOXIDE 26.1 mmol/L (21-32); CREATININE 0.6 mg/dL (0.6-1.3); MAGNESIUM 1.9 mg/dL (1.8-2.4); PHOSPHORUS 3.6 mg/dL (2.5-4.9); POTASSIUM 3.6 mmol/L (3.5-5.1); TOTAL BILIRUBIN 5.3 mg/dL (0.0-1.0)
[2019-06-02 08:00] VITALS: BP 119/78
--- NOTE | 2019-06-02 09:31 | NUR ---
MEDICATIONS ADMINISTERED PER ORDER. PT TOLERATED WELL. WILL CONTINUE TO MONITOR.
[2019-06-02] MEDS: INDOMETHACIN 25 MG CAP PO SCH (09:33)
[2019-06-02] MEDS: PANTOPRAZOLE 40 MG INJ VIAL IVP SCH (09:33)
[2019-06-02] MEDS: LACTOBACILLUS RHAMNOSUS GG 1 EACH CAP PO SCH (09:33)
--- NOTE | 2019-06-02 10:30 | NUR ---
ASSISTED PT TO TO BATHROOM TO TAKE SHOWER.
--- NOTE | 2019-06-02 10:39 | NUR ---
RECEIVED A MINH OF BACK AGREEMENT FROM [facility] JESSICA WHICH THEY DON'T NEED IT BECAUSE THEY ARE THE CONTRACTED FACILITY. CALLED THE INSURANCE SPOKE WITH ERNESTINE ERWIN TO CLARIFY PER ERNESTINE SINCE THEY ARE THE CONTRACTED FACILITY NO NEED THE [facility]. CALLED JESSICA AND SPOKE WITH KULWINDER [phone] EXPLAINED THE INSURANCE POLICY , KULWINDER AGREED AND SENT IT TO THE BED CONTROL. WATING FOR THE BED AT THIS TIME. EXPLAIN TO THE PATIENT AND FAMILY THE SITUATION AND ENCOURAGED THEM TO BE PATIENT BECAUSE IT IS HIGHLY RECOMMENDED BY THE GI DR AND NEEDS THE PROCEDURE TO BE DONE. PT AND HER MOTHER AGREED TO STAY AND WAIT. CM TO FOLLOW
--- NOTE | 2019-06-02 13:06 | NUR ---
MEDICATIONS ADMINISTERED PER ORDER. PT TOLERATED WELL. WILL CONTINUE TO MONITOR.
[2019-06-02] MEDS: LEVOFLOXACIN 500 MG/D5W PREMIX 100 ML IV SCH (15:11)
[2019-06-02 16:00] VITALS: BP 122/80
--- NOTE | 2019-06-02 16:00 | NUR ---
VITAL SIGNS MONITORED. PT DENIES PAIN. PT SITTING IN BED ACCOMPANIED BY MOTHER. WILL CONTINUE TO MONITOR.
[2019-06-02 16:03] LABS: AMYLASE 83 U/L (25-115); LIPASE 366 U/L (73-393)
--- NOTE | 2019-06-02 16:07 | NUR ---
[facility] HAS A BED PT CAN GO TO ROOM 6217 , ARRANGED TRANSPORT WITH [facility] CLEAN OUT DRILLER HELPER TIME 1800. # TO GIVE REPORT [phone].
--- NOTE | 2019-06-02 16:45 | NUR ---
CALLED [facility] TO GIVE REPORT AND TRANSFER PT FOR HIGHER LEVEL OF CARE [phone]. REPORT GIVEN TO FRANDY STEEL.
[2019-06-02 17:09] VITALS: BP 122/80
--- NOTE | 2019-06-02 18:25 | NUR ---
PT READY FOR DISCHARGE AT THIS TIME. EDUCATION AND FOLLOW UP INFORMATION PROVIDED TO PT. DISCHARGE PACKET PROVIDED. SIGNATURES OBTAINED. IV REMOVED WITH MINIMAL BLOOD LOSS AND LUMEN INTACT. ID BANDS REMOVED. PT STABLE AT THIS TIME. AAOX4. RESPIRATIONS EVEN AND UNLABORED. SKIN WARM AND DRY WITH PRESENCE OF SURGICAL INCISION S/P LAP ALMA. PT LEFT VIA GURNEY BY [facility] TRANSPORT TO [facility]
== END 2019-06-02 18:25 | disposition short-term general hospital (02) | DRG 263 ==
LOC: MED 16:17 → MTU 19:38
PROVIDERS: ADMIT General Practice; ATTEND General Practice
PROC: 0FT44ZZ Resection of Gallbladder, Percutaneous Endoscopic Approach (ICD-10-PCS; principal; 2019-05-29 16:15)
PROC: 0FJB8ZZ Inspection of Hepatobiliary Duct, Via Natural or Artificial Opening Endoscopic (ICD-10-PCS; 2019-05-31)
PROC: BF101ZZ Fluoroscopy of Bile Ducts using Low Osmolar Contrast (ICD-10-PCS; 2019-05-31)
PROC: 0F998ZZ Drainage of Common Bile Duct, Via Natural or Artificial Opening Endoscopic (ICD-10-PCS; 2019-05-31)
DX: K80.62 Calculus of gallbladder and bile duct with acute cholecystitis without obstruction (principal); E44.1 Mild protein-calorie malnutrition; O99.63 Diseases of the digestive system complicating the puerperium; E80.6 Other disorders of bilirubin metabolism; O86.20 Urinary tract infection following delivery, unspecified; O25.3 Malnutrition in the puerperium; O90.89 Other complications of the puerperium, not elsewhere classified; Z86.32 Personal history of gestational diabetes; Z68.37 Body mass index [BMI] 37.0-37.9, adult
CPT/HCPCS: 36415; 71045; 76705; 77003; 80048; 80053; 80076; 80305; 81001; 82150; 83036; 83605; 83690; 83735; 83880; 84100; 84439; 84443; 84484; 85025; 85610; 85730; 87081; 87086; 88304; 93005; 99285; C1769; C1887; C9113; J0330; J1100; J1170; J1885; J1956; J2001; J2250; J2270; J2405; J2543; J2704; J3010; J3475; J3490; J7030; J7060; J7120; Q0092; Q9967